=== PATIENT | female | born 1930 | race Caucasian/White ===

== ENCOUNTER 2017-06-28 16:53 | Emergency (ER) | payer MEDICARE ==
--- NOTE | 2017-06-28 17:34 | ERNOTE ---
Lower Extremity HPI - Narrative Date of Service: 06/28/17 - General Lower Extremities Pain: leg: left - Wound of left lateral mid shaft tibia Time Seen by Provider: 06/28/17 17:03 Source: patient, family Exam Limitations: no limitations - Immun/Allergies/Home Medications Immunizations: IMMUNIZATION HX Immunizations Up to Date Yes Allergies/Adverse Reactions: Allergies Allergy/AdvReac Type Severity Reaction Status Date / Time Penicillins Allergy Intermediate Hives Verified 06/28/17 17:09 procaine HCl [From Novocain] AdvReac Severe Swelling Verified 06/28/17 17:09 of Face Sulfa (Sulfonamide AdvReac Intermediate Other Verified 06/28/17 17:09 Antibiotics) [Sulfa(Sulfonamide Antibiotics)] Home Medications: HOME MEDICATIONS Aspirin [Aspirin Chewable] 1 tab PO DAILY 08/11/12 [Last Taken 08/10/12 17:00] Atorvastatin Calcium 1 tab PO DAILY 08/11/12 [Last Taken 08/10/12 17:00] Losartan/Hydrochlorothiazide [Losartan-Hctz 100-25 mg Tab] 1 tab PO DAILY [Last Taken 08/10/12 17:00] NIFEdipine [Nifedipine ER] 1 tab PO DAILY 08/11/12 [Last Taken 08/10/12 17:00] Warfarin Sodium [Coumadin] 1 tab PO DAILY 08/11/12 [Last Taken 08/10/12 17:00] Clindamycin HCl 450 mg PO TID 8 Days #72 capsule 06/28/17 [Last Taken Unknown] - History of Present Illness Narrative: Family state that they noticed the wound of the leg with some surrounding redness. Patient denies knowing what happened. States she has been out in some weeds but has no idea how the wound got this extensive without anyone knowing. Date (Duration): 06/28/17 Occurred: other Location of Incident: home Method of Injury: Reports: unknown Associated Symptoms: Reports: none Other Injuries: Reports: none Prior Treament: Reports: other - Has been applying topical antibiotics. Review of Systems - Narrative Narrative: See HPI. Patient states she has no loss of sensation distally. Denies any pain. States there was no trauma that she was aware of. States she is not diabetic. Patient is on warfarin. - Review of Systems Constitutional: Present: no symptoms reported Respiratory: Present: no symptoms reported Cardiology: Present: no symptoms reported Gastrointestinal/Abdominal: Present: no symptoms reported Musculoskeletal: Present: no symptoms reported Skin: Present: other - As mentioned states she developed this wound on the leg. Somewhat pruitic but denies pain or drainage. Have been applying topical antibiotic. Neurological: Present: no symptoms reported Endocrine: Present: no symptoms reported Hematologic/Lymphatic: Present: easy bruising Psych: Present: no symptoms reported - Patient's Past Medical History Patient History - Medical: No pertinent hx Patient History - Cardiac/Respiratory: Hypertension, Hyperlipidemia, Valvular Heart Disease, Other Patient History - Cancer: Skin Patient History - Surgical Procedures: Other Patient History - Other: None - Social History Smoking Status: Never smoker Have you smoked in the past 12 months: No - Immunizations Immunizations Up to Date: Yes Physical Exam - Physical Exam General Appearance: Present: wd/wn, alert, no apparent distress Ears, Nose, Throat: Present: hearing decreased Respiratory: Present: no respiratory distress Cardiovascular/Chest: Present: other - No peripheral edema Peripheral Pulses: N=norm/S=strong/W=weak/B=bound/A=absent: Dorsalis-pedis (L): Normal Extremity Exam: Present: normal range of motion, no edema, other - Left medial midshaft tibia 4x6 cm wound with mild sloughing of tissue. Within the larger wound are two deeper areas that do appear to have opened with bleeding. No bleeding presently. Surround the complete wound 1cm erythema with no induration. Mild swelling but no warmth. Distal sensation intact. On the anterior leg/esvilla two 1cm reddened/purple areas that have not opened. No drainage from these two areas. Neurological Exam: Present: alert, oriented, normal mood/affect, no motor/ sensory deficits Skin Exam: Present: other - See Extremity exam ED Progress - Vital Signs Patient's Vital Signs:: I have reviewed the patient's vital signs. Vital Signs: Vital Signs 06/28/17 16:58 Temperature 37.4 C Pulse Rate 106 H Respiratory 14 Rate Blood Pressure 148/61 O2 Sat by Pulse 93 Oximetry - Progress/Reassessment Chief Complaint: Lower Extremity Pain/ Injury Progress:: Re-examined Progress Note-Subjective: 06/28/17 17:59 Wound now covered. - Transfer of Care Expected Disposition: Discharge Procedures Left Lateral Tibia Wound's Depth/Shape: superficial Wound Explored: clean Wound Intervention: debrided minimal Wound Dressing: sterile dressing applied Complications: Pt landen procedure well Comment: No intervention other than scraping some debridable tissue and applying enedina dressing. Departure Clinical Impression: Wound of left leg Qualifiers: Encounter type: initial encounter Qualified Code(s): S81.802A - Unspecified open wound, left lower leg, initial encounter - Departure Disposition: Home Follow Up Needed Condition: Good Additional Instructions: I am concerned about cellulitis so will start you on a course of antibiotics every 8 hrs. Leave the leg wrapped until you see your primary provider on Friday. Might discuss with her whether or not wound therapy is needed. Also have your INR (coumadin) level checked. If you have any further complications let us know. Referrals: Vonda Chris, DO [Primary Care Provider] - Prescriptions: Clindamycin HCl 450 mg PO TID 8 Days #72 capsule
[2017-06-28 17:45] VITALS: BP 146/63
== END 2017-06-28 17:45 | disposition home or self-care (01) ==
LOC: ER 16:53
DX: S81.802A Unspecified open wound, left lower leg, initial encounter (principal); Z85.828 Personal history of other malignant neoplasm of skin; E78.5 Hyperlipidemia, unspecified; I10 Essential (primary) hypertension; Z79.01 Long term (current) use of anticoagulants

== ENCOUNTER 2017-06-30 12:49 | Emergency (ER) | payer MEDICARE ==
[2017-06-30 13:31] LABS: Hematocrit 40.1 % (37.0-47.0); Hemoglobin 12.9 gm/dL (12.5-16.0); Mean Cell Volume 86.6 fl (78-100); Mean Corpuscular Hemoglobin 27.9 pg (27-31); Mean Corpuscular Hgb Conc 32.2 g/dl (32-36); Mean Platelet Volume 10.3 fl (6.0-9.5); Neutrophil # 5.9 K/mm3 (1.3-6.0); Neutrophil % 60.7 % (42-75.0); Platelet Count 179 K/mm3 (150-450); Red Blood Count 4.63 M/mm3 (4.2-5.4); Red Cell Distribution Width 14.7 % (11.5-14.0); White Blood Count 9.8 K/mm3 (4.0-10.5)
[2017-06-30 13:41] LABS: Albumin * 4.1 gm/dl (3.4-5.0); Anion Gap 12.8 mmol/L (6.8-13.8); BUN/Creatinine Ratio 20.8 (9.0-21.6); Bilirubin, Total 0.8 mg/dL (0.0-1.1); Ca. Corrected For Albumin 8.7 mg/dL (8.4-10.2); Calcium * 9.1 mg/dL (7.9-10.9); Potassium 3.8 mmol/L (3.4-4.6); Total Protein 7.3 gm/dL (6.2-8.2)
[2017-06-30] MEDS ORDERED: LIDOCAINE HCL 20 ML VIAL ONE (14:27)
--- NOTE | 2017-06-30 14:34 | ERNOTE ---
Integumentary HPI - Narrative Date of Service: 06/30/17 - General Presenting Symptoms: other - Cellulitis Time Seen by Provider: 06/30/17 13:06 Source: patient, family, RN/MD - Dr. Chris, RN notes reviewed Exam Limitations: no limitations - Immun/Allergies/Home Medications Immunizations: IMMUNIZATION HX Immunizations Up to Date Yes History of Influenza Vaccine Yes Hx Pneumococcal Vaccination Yes Allergies/Adverse Reactions: Allergies Allergy/AdvReac Type Severity Reaction Status Date / Time Penicillins Allergy Intermediate Hives Verified 06/30/17 12:59 procaine HCl [From Novocain] AdvReac Severe Swelling Verified 06/30/17 12:59 of Face Sulfa (Sulfonamide AdvReac Intermediate Other Verified 06/30/17 12:59 Antibiotics) [Sulfa(Sulfonamide Antibiotics)] Home Medications: HOME MEDICATIONS Aspirin [Aspirin Chewable] 1 tab PO DAILY 08/11/12 [Last Taken 08/10/12 17:00] Atorvastatin Calcium 1 tab PO DAILY 08/11/12 [Last Taken 08/10/12 17:00] Losartan/Hydrochlorothiazide [Losartan-Hctz 100-25 mg Tab] 1 tab PO DAILY [Last Taken 08/10/12 17:00] NIFEdipine [Nifedipine ER] 1 tab PO DAILY 08/11/12 [Last Taken 08/10/12 17:00] Warfarin Sodium [Coumadin] 1 tab PO DAILY 08/11/12 [Last Taken 08/10/12 17:00] Clindamycin HCl 450 mg PO TID 8 Days #72 capsule 06/28/17 [Last Taken Unknown] - History of Present Illness Narrative: Angelica is a 87 year old female brought to the ED by her family for cellulitis of her left lower leg. She was initially evaluated here on 05/28/17 and started on clindamycin for this. She did not start the medication until yesterday and has only had 3 doses so far. She saw Dr. Chris (her PCP) for follow up this morning. I spoke with Dr. Chris at that time. She was concerned that the areas of redness may be "tunneling" and that the patient needed to be admitted for IV antibiotics. Her daughter reports that she was told to come here to be admitted. Dr. Chris had reported that the patient is diabetic, but the patient and family deny this. The patient had bumped her leg, causing a small wound to her sevilla approximately a week and a half ago. She has no prior history of skin infections. The wound was weeping when the patient was here 2 days ago, but this has subsided. She denies pain and reports that the area occasionally arita. Location: Reports: lower extremity - Left Quality: Reports: burning Prior Treatment: Reports: recently seen, currently on antibiotics Review of Systems - Review of Systems Constitutional: Absent: fever, chills, malaise EYE: Present: no symptoms reported ENT: Present: no symptoms reported Respiratory: Absent: shortness of breath Cardiology: Absent: chest pain, palpitations, edema Gastrointestinal/Abdominal: Present: nausea. Absent: vomiting, diarrhea, abdominal pain Genitourinary: Present: no symptoms reported Musculoskeletal: Absent: muscle pain, joint pain, joint swelling Skin: Present: lesions, change in color. Absent: lumps Neurological: Absent: headache, dizziness/light-headedness Endocrine: Present: no symptoms reported Hematologic/Lymphatic: Present: easy bruising, easy bleeding Psych: Present: no symptoms reported - Patient's Past Medical History Patient History - Medical: No pertinent hx Patient History - Cardiac/Respiratory: Hypertension, Hyperlipidemia, Valvular Heart Disease, Other Patient History - Cancer: Skin Patient History - Surgical Procedures: Other - Carotid endarterectomy, Valve replacement Patient History - Other: None LMP (females 10-50): Menopausal - Social History Living Situations: home Psych History: No pertinent hx Smoking Status: Former smoker Alcohol Use: occasionally Drug Use: none - Immunizations Immunizations Up to Date: Yes Hx Pneumococcal Vaccination: Yes History of Influenza Vaccine: Yes Physical Exam - Physical Exam General Appearance: Present: wd/wn, alert, no apparent distress, other - Pleasant, appropriately dressed/groomed Neck: Present: normal inspection, nontender, supple Respiratory: Present: no respiratory distress, normal breath sounds, no accessory muscle use, lungs clear Cardiovascular/Chest: Present: regular rate, rhythm, no murmur, normal peripheral pulses Extremity Exam: Present: normal range of motion, no edema. Absent: pedal edema , calf tenderness, joint redness, joint swelling, extremity edema Neurological Exam: Present: alert, oriented, normal mood/affect, no motor/ sensory deficits Skin Exam: Present: warm/dry, other - Erythematous areas to left mid sevilla anteriorly and laterally - has receeded since area was outlined 2 days ago, no drainage, no fluctuance, not excessively warm to touch ED Progress - Results and Orders Patient's Lab Results:: I have reviewed the patient's lab results. - Vital Signs Patient's Vital Signs:: I have reviewed the patient's vital signs. Vital Signs: Vital Signs 06/30/17 06/30/17 12:53 13:56 Temperature 36.7 C Pulse Rate 102 H 73 Respiratory 16 14 Rate Blood Pressure 118/100 160/77 O2 Sat by Pulse 98 93 Oximetry - X-Ray X-Ray #1 X-Ray: tibula/fibula Interpretation: Reviewed by me X-ray Comments: (Left) - no evidence of soft tissue gas, mild soft tissue swelling noted - Progress/Reassessment Chief Complaint: Cellulitis Progress:: Improved Plan - Plan Plan: Test results discussed with patient and family. One of the daughters was very unhappy that the patient was not going to be admitted, as they had been told that this was the reason for coming here. I explained at length that despite only 3 doses (24 hrs) of clindamycin, the condition seems to be improving. The redness has receeded from what was outlined in ink 2 days ago, there is no drainage, the patient is not febrile and has a normal white count, and she is tolerating oral intake with only mild nausea.The patient is A/Ox3, very pleasant , and reports that she did not want to be in the hospital anyway. Madyson Enrique RN, ED supervisor extruding department and Dr. White also spoke with the patient and family to reiterate this information. The patient and daughter seem to be content and in agreement with the plan of care at the time of discharge. The daughter who had seemed unhappy mentioned not wanting to be told to see Dr. Chris again for follow up, only to be told to then come here. I discussed with the patient that she did not necessarily have to go for follow up if she was doing well, but that if her condition was worsening she should return to the ER. Departure Clinical Impression: Cellulitis of left lower extremity without foot - Departure Disposition: Home self-care Condition: Good Instructions: Cellulitis, Adult, [id number] Additional Instructions: Elevate your leg whenever you are able You do not need to cover the area with a dressing if it is not draining Wash area as you normally would when bathing/showering Continue your current medications including the antibiotic (clindamycin) Referrals: Vonda Chris DO [Primary Care Provider] -
[2017-06-30 15:02] VITALS: BP 164/80
== END 2017-06-30 15:00 | disposition home or self-care (01) ==
LOC: ER 12:49
DX: L03.116 Cellulitis of left lower limb (principal); Z85.828 Personal history of other malignant neoplasm of skin; Z87.891 Personal history of nicotine dependence

== ENCOUNTER 2017-09-23 13:47 | Inpatient (IN) | payer MEDICARE ==
[2017-09-23] MEDS ORDERED: ALBUTEROL SULFATE/IPRATROPIUM 3 ML NEBU IH ONE ×2 (14:15→14:16)
[2017-09-23 14:43] LABS: Hematocrit 33.7 % (37.0-47.0); Hemoglobin 10.9 gm/dL (12.5-16.0); Mean Cell Volume 85.8 fl (78-100); Mean Corpuscular Hemoglobin 27.7 pg (27-31); Mean Corpuscular Hgb Conc 32.3 g/dl (32-36); Mean Platelet Volume 10.3 fl (6.0-9.5); Neutrophil # 8.3 K/mm3 (1.3-6.0); Neutrophil % 72.5 % (42-75.0); Platelet Count 131 K/mm3 (150-450); Red Blood Count 3.93 M/mm3 (4.2-5.4); Red Cell Distribution Width 16.2 % (11.5-14.0); White Blood Count 11.5 K/mm3 (4.0-10.5)
[2017-09-23 14:52] LABS: INR 2.78 INR (0.90-1.10); Prothrombin Time (Patient) 28.1 Seconds (9.0-11.0)
[2017-09-23 15:07] LABS: Albumin * 3.6 gm/dl (3.4-5.0); Anion Gap 13.4 mmol/L (6.8-13.8); BUN/Creatinine Ratio 27.7 (9.0-21.6); Bilirubin, Total 1.4 mg/dL (0.0-1.1); Ca. Corrected For Albumin 8.9 mg/dL (8.4-10.2); Calcium * 8.9 mg/dL (7.9-10.9); Carbon Dioxide 25.5 mmol/L (24-32.6); Potassium 3.9 mmol/L (3.4-4.6); Total Protein 7.1 gm/dL (6.2-8.2)
[2017-09-23 15:10] LABS: Troponin I 0.235 ng/ml (0.00-0.10)
--- NOTE | 2017-09-23 15:13 | ERNOTE ---
Chest Pain/Cardiac HPI Date of Service: 09/23/17 Chief Complaint: Chest Pain Time Seen by Provider: 09/23/17 14:22 Source: patient, family, RN notes reviewed, past records Exam Limitations: no limitations Immunizations: IMMUNIZATION HX Immunizations Up to Date Yes History of Influenza Vaccine Yes Hx Pneumococcal Vaccination Yes Allergies/Adverse Reactions: Allergies levofloxacin [From Levaquin] Allergy (Intermediate, Verified 09/23/17 16:24) Hives Penicillins Allergy (Intermediate, Verified 09/23/17 14:08) Hives metoprolol Allergy (Mild, Verified 09/23/17 14:08) Hives procaine HCl [From Novocain] Adverse Reaction (Severe, Verified 09/23/17 14:08) Swelling of Face Sulfa (Sulfonamide Antibiotics) [Sulfa(Sulfonamide Antibiotics)] Adverse Reaction (Intermediate, Verified 09/23/17 14:08) Other nightmares Home Medications: HOME MEDICATIONS Aspirin [Aspirin Chewable] 1 tab PO DAILY 08/11/12 [Last Taken 08/10/12 17:00] Atorvastatin Calcium 1 tab PO DAILY 08/11/12 [Last Taken 08/10/12 17:00] Losartan/Hydrochlorothiazide [Losartan-Hctz 100-25 mg Tab] 1 tab PO DAILY [Last Taken 08/10/12 17:00] NIFEdipine [Nifedipine ER] 1 tab PO DAILY 08/11/12 [Last Taken 08/10/12 17:00] Warfarin Sodium [Coumadin] 1 tab PO SUMOTUTHFR 08/11/12 [Last Taken 08/10/12 17: 00] Docusate Sodium [Colace] 2 cap PO DAILY 09/14/17 [Last Taken Unknown] Warfarin Sodium [Coumadin] 7.5 mg PO WESA 09/14/17 [Last Taken Unknown] Acetaminophen [Tylenol] 650 mg PO Q6H PRN #0.1 tablet 09/16/17 [Last Taken Unknown] Levofloxacin [Levaquin] 500 mg PO Q48H #3 tab 09/16/17 [Last Taken Unknown] Narrative: Angelica is a 87 year old female brought to the ED from home by her daughter for chest pain. She had a brief episode of chest pain at approximately 0300 this morning. The daughter tried to get her to come in for evaluation then but the patient did not want to, and then the pain resolved. She was doing well today until she began having chest pain while walking across the room. This resolved without intervention as well. She was was just discharged from the hospital 6 days ago. She was admitted with pneumonia and new onset CHF. She has been seen by cardiology for follow-up since then. She was treated with IV Levaquin while in the hospital but only took 2 doses once she got home because she broke out with hives. Date (Duration): 09/23/17 Timing: resolved prior to arrival Severity/Quality: severe Location: substernal Chest Pain Radiation: no radiation Nitro Today/Relief: no nitro taken today Aspirin Treatment Today: 81 mg x 1, provided at home Associated Symptoms: Present: cough, nausea. Absent: headache, dizziness, syncope, shortness of breath, diaphoresis, fever/chills, palpitations, heartburn , vomiting, abdominal pain, weakness, back pain, swelling/lump in chest Prior Chest Pain/Cardiac Workup: Reports: prior chest pain, other - CABG Prior Treatment: Reports: recently seen, treated by physician, recently hospitalized. Denies: currently on antibiotics Review of Systems - Review of Systems Constitutional: Present: recent illness, fatigue, decreased activity level. Absent: fever EYE: Present: no symptoms reported ENT: Absent: nose congestion, sore throat Respiratory: Present: shortness of breath, cough, orthopnea. Absent: wheezing Cardiology: Present: chest pain. Absent: syncope, edema Gastrointestinal/Abdominal: Present: nausea. Absent: vomiting, diarrhea, abdominal pain Genitourinary: Absent: dysuria, decreased urinary output Musculoskeletal: Absent: muscle pain, joint pain Skin: Absent: rash, lesions Neurological: Absent: headache, dizziness/light-headedness Endocrine: Present: no symptoms reported Hematologic/Lymphatic: Present: easy bruising, easy bleeding Psych: Present: no symptoms reported - Patient's Past Medical History Patient History - Medical: Renal Disease Patient History - Cardiac/Respiratory: Cardiomyopathy, Coronary Heart Disease, CHF - EF 50-55%, Hypertension, Hyperlipidemia, Valvular Heart Disease Patient History - Cancer: Skin Patient History - Surgical Procedures: Appendectomy, Colonoscopy, Coronary Bypass Surgery, Hysterectomy, Other - Aortic valve replacement, Carotic endarterectomy Patient History - Other: None LMP (females 10-50): Menopausal - Family History Father Family History - Medical: Family History - Cardiac/Respiratory: CHF Family History - Cancer: No pertinent family hx Mother Family History - Medical: Family History - Cardiac/Respiratory: Myocardial Infarction Family History - Cancer: No pertinent family hx - Social History Living Situations: home Abuse History: No History of abuse Psych History: No pertinent hx Smoking Status: Former smoker Alcohol Use: none Drug Use: none - Immunizations Immunizations Up to Date: Yes Hx Pneumococcal Vaccination: Yes History of Influenza Vaccine: Yes Physical Exam - Physical Exam General Appearance: Present: wd/wn, alert, mild distress, other - Pleasant, talkative, appropriately dressed and groomed Head Exam: Present: normal inspection Neck: Present: normal inspection, nontender, supple Respiratory: Present: no respiratory distress, accessory muscle use - mild, rales - bilateral bases Cardiovascular/Chest: Present: normal peripheral pulses, tachycardia - regular, systolic murmur Peripheral Pulses: N=norm/S=strong/W=weak/B=bound/A=absent: Dorsalis-pedis (R): Normal, Dorsalis-pedis (L): Normal Gastrointestinal/Abdominal: Present: nontender, nondistended, soft Extremity Exam: Present: normal inspection, non-tender, no edema Neurological Exam: Present: alert, oriented, normal mood/affect, no motor/ sensory deficits Skin Exam: Present: normal color, warm/dry ED Progress - Results and Orders Patient's Lab Results:: I have reviewed the patient's lab results. - Vital Signs Patient's Vital Signs:: I have reviewed the patient's vital signs. Vital Signs: Vital Signs 09/23/17 09/23/17 09/23/17 14:03 14:19 14:20 Temperature 37.3 C Pulse Rate 108 H 103 H 102 H Respiratory 25 H 22 H 22 H Rate Blood Pressure 137/57 134/52 O2 Sat by Pulse 88 L 90 90 Oximetry 09/23/17 14:35 Temperature Pulse Rate Respiratory Rate Blood Pressure O2 Sat by Pulse 95 Oximetry - EKG EKG: other - sinus tach EKG read: Reviewed by me - X-Ray X-Ray #1 X-Ray: chest Interpretation: Reviewed by me X-ray Comments: Indication: chest pain, pneumonia Comparison: September 14, 2017 Technique: Chest PA Lateral * Findings: Reidentified central vascular congestion and interstitial edema. Previous median sternotomy and valvular prosthesis reidentified. Cardiac silhouette is unchanged. No pneumothorax. IMPRESSION: 1. Correlate for volume overload/CHF. Electronically signed by Blake Tang M.D.. - Progress/Reassessment Chief Complaint: Chest Pain Progress:: Improved Plan - Plan Plan: Patient hypoxic on arrival at 88%. She has not had any further chest pain, however her troponin is mildly elevated. Her lactic acid is also elevated at 2.2 , but she does not appear to be septic as she has a stable blood pressure and is only mildly tachycardic. Her BNP is 2116 today (2119 on last admit) so IV fluids were not given. Her WBC has also improved since her last admit, as has the pneumonia seen on her previous chest xray. Her urine did show leukocyte esterace and a culture is pending, as are her blood cultures. Patient's PCP is Dr. Chris. Dr. Brian (on-call) was contacted and will admit the patient for further evaluation and treatment. Departure Clinical Impression: Hypoxia, Elevated troponin Congestive heart failure Qualifiers: Congestive heart failure type: unspecified Congestive heart failure chronicity : unspecified Qualified Code(s): I50.9 - Heart failure, unspecified - Departure Disposition: [facility] Condition: Fair
[2017-09-23 15:30] LABS: Urine Bilirubin Negative (NEGATIVE); Urine Blood Negative /ul (NEGATIVE); Urine Ketone Negative (NEGATIVE); Urine Nitrite Negative (NEGATIVE); Urine Protein Negative (NEGATIVE); Urine Specific Gravity 1.015 SP.GR. (1.005-1.010); Urine Urobilinogen Normal (NORMAL)
[2017-09-23 15:45] LABS: Urine Appearance Clear; Urine Bacteria None Seen; Urine Color Yellow; Urine RBC None Seen /hpf (0-5); Urine WBC 0-5 /hpf (0-5)
--- NOTE | 2017-09-23 18:59 | HP ---
Chief Complaint - Chief Complaint Date of Service: 09/23/17 Time of Service: 18:38 Chief Complaint: dyspnea History of Present Illness: Angelica Bowden is an 87-year-old female patient who developed shortness of breath at home and was brought to the emergency room per EMS this afternoon. On arrival her O2 sat was 80% and blood gases shows a superior respiratory problem with with a PO2 of 79.8%. She was placed on oxygen at 2 L nasal cannula and this has brought her O2 sats up to 89-90%. She is in the hospital last week with a diagnosis of pneumonia. She was treated with respiratory therapy and with IV Levaquin for 3 days and then sent home to take by mouth Levaquin for another 3 days. She developed itching on day 2 of the oral Levaquin at home and did not take the third dose. She denies having had any fever or chills. She has coughed up some pink frothy sputum on occasion. The chest x-ray shows improvement in the appearance of the pneumonia but now appears that she has some pulmonary vascular congestion with lines to the parameter and interstitial edema present. Her troponin is elevated slightly at 0.233 suggestive of but not diagnostic of an acute myocardial infarction. Furthermore her BNP has been greater than 2000 on both admissions. She relates an episode last night and another one earlier today of having a burning sensation in her chest with pressure on the anterior chest. She denies any radiation, nausea or vomiting, lightheadedness, or diaphoresis. She stated it lasted about 20 minutes and then was just resting and rubbing her chest it subsided and went away. ++ - Patient's Past Medical History Patient History - Medical: Renal Disease Patient History - Cardiac/Respiratory: Cardiomyopathy, Coronary Heart Disease, CHF, Hypertension, Hyperlipidemia, Valvular Heart Disease Patient History - Cancer: Skin Patient History - Surgical Procedures: Appendectomy, Colonoscopy, Coronary Bypass Surgery, Hysterectomy, Other - Aortic Valve Replacement with a [employer] mechanical valve Patient History - Other: None LMP (females 10-50): Menopausal - Family History Father Family History - Medical: Family History - Cardiac/Respiratory: CHF Family History - Cancer: No pertinent family hx Mother Family History - Medical: Family History - Cardiac/Respiratory: Myocardial Infarction Family History - Cancer: No pertinent family hx - Social History Living Situations: home Abuse History: No History of abuse Psych History: No pertinent hx Does anyone smoke in the home?: No Smoking Status: Former smoker Have you smoked in the past 12 months: No Do you dip or chew tobacco: No Alcohol Use: none Drug Use: none - Immunizations Immunizations Up to Date: Yes Hx Pneumococcal Vaccination: Yes History of Influenza Vaccine: Yes Immunizations: IMMUNIZATION HX Immunizations Up to Date Yes History of Influenza Vaccine Yes Hx Pneumococcal Vaccination Yes Allergies/Adverse Reactions: Allergies Allergy/AdvReac Type Severity Reaction Status Date / Time levofloxacin [From Levaquin] Allergy Intermediate Hives Verified 09/23/17 17:20 Penicillins Allergy Intermediate Hives Verified 09/23/17 17:20 metoprolol Allergy Mild Hives Verified 09/23/17 17:20 procaine HCl [From Novocain] AdvReac Severe Swelling Verified 09/23/17 17:20 of Face Sulfa (Sulfonamide AdvReac Intermediate Other Verified 09/23/17 17:20 Antibiotics) [Sulfa(Sulfonamide Antibiotics)] Home Medications: HOME MEDICATIONS Aspirin [Aspirin Chewable] 1 tab PO HS 08/11/12 [Last Taken 08/10/12 17:00] Atorvastatin Calcium 1 tab PO HS 08/11/12 [Last Taken 08/10/12 17:00] Losartan/Hydrochlorothiazide [Losartan-Hctz 100-25 mg Tab] 1 tab PO HS 08/11/12 [Last Taken 08/10/12 17:00] NIFEdipine [Nifedipine ER] 1 tab PO HS 08/11/12 [Last Taken 08/10/12 17:00] Warfarin Sodium [Coumadin] 1 tab PO SUMOTUTHFR 08/11/12 [Last Taken 08/10/12 17: 00] Docusate Sodium [Colace] 2 cap PO HS 09/14/17 [Last Taken Unknown] Warfarin Sodium [Coumadin] 7.5 mg PO WESA 09/14/17 [Last Taken Unknown] Acetaminophen [Tylenol] 650 mg PO Q6H PRN #0.1 tablet 09/16/17 [Last Taken Unknown] Exam - Exam Vital Signs: Vital Signs - Last Taken Temp 36.8 C 09/23/17 16:58 Pulse 106 H 09/23/17 16:58 Resp 20 09/23/17 16:58 BP 135/53 09/23/17 16:58 Pulse Ox 94 09/23/17 16:58 Diagnostic Studies: Laboratory Results WBC 11.5 K/mm3 (4.0-10.5) H 09/23/17 14:30 RBC 3.93 M/mm3 (4.2-5.4) L 09/23/17 14:30 Hgb 10.9 gm/dL (12.5-16.0) L 09/23/17 14:30 Hct 33.7 % (37.0-47.0) L 09/23/17 14:30 MCV 85.8 fl (78-100) 09/23/17 14:30 MCH 27.7 pg (27-31) 09/23/17 14:30 MCHC 32.3 g/dl (32-36) 09/23/17 14:30 RDW 16.2 % (11.5-14.0) H 09/23/17 14:30 Plt Count 131 K/mm3 (150-450) L 09/23/17 14:30 MPV 10.3 fl (6.0-9.5) H 09/23/17 14:30 Immature Gran % (Auto) 0.30 % (0.001-0.429) 09/23/17 14:30 Immature Gran # (Auto) 0.04 K/mm3 (0.000-0.0310) H 09/23/17 14:30 Neutrophils % 72.5 % (42-75.0) 09/23/17 14:30 Lymphocytes % 16.4 % (20-51) L 09/23/17 14:30 Monocytes % 8.4 % (0.0-9) 09/23/17 14:30 Eosinophils % 1.9 % (0.0-3.0) 09/23/17 14:30 Basophils % 0.5 % (0.0-1.0) 09/23/17 14:30 Nucleated RBC % 0.0 k/mm3 (0-1) 09/23/17 14:30 Neutrophils # 8.3 K/mm3 (1.3-6.0) H 09/23/17 14:30 Lymphocytes # 1.9 k/mm3 (1.5-3.5) 09/23/17 14:30 Monocytes # 1.0 k/mm3 (0.0-1.0) 09/23/17 14:30 Eosinophils # 0.2 k/mm3 (0.0-0.7) 09/23/17 14:30 Absolute Basophils 0.1 k/mm3 (0.0-0.1) 09/23/17 14:30 PT 28.1 Seconds (9.0-11.0) H 09/23/17 14:30 INR (Anticoag Therapy) 2.78 INR (0.90-1.10) H 09/23/17 14:30 pCO2 34.4 mmHg (32.0-45.0) 09/23/17 14:58 pO2 42.8 mmHg (83.0-108.0) L 09/23/17 14:58 HCO3 21.6 mmol/L (21.0-28.0) 09/23/17 14:58 Total CO2 22.6 mmol/L (19.0-24.0) 09/23/17 14:58 Base Excess -2.4 mmol/L (-2.0-3.0) L 09/23/17 14:58 ABG pH 7.42 (7.35-7.45) 09/23/17 14:58 ABG O2 Sat (Measured) 79.8 % (94.0-98.0) L 09/23/17 14:58 Sodium 138 mmol/L (132-142) 09/23/17 14:30 Plasma Sodium 139 mmol/L (130-142) 09/23/17 14:30 Potassium 3.9 mmol/L (3.4-4.6) 09/23/17 14:30 Chloride 103 mmol/L (97-106) 09/23/17 14:30 Carbon Dioxide 25.5 mmol/L (24-32.6) 09/23/17 14:30 Anion Gap 13.4 mmol/L (6.8-13.8) 09/23/17 14:30 BUN 49 mg/dL (3-23) H 09/23/17 14:30 Creatinine 1.77 mg/dL (0.4-1.4) H 09/23/17 14:30 Est GFR (Non-Af Amer) 29 mL/min (60-130) L 09/23/17 14:30 BUN/Creatinine Ratio 27.7 (9.0-21.6) H 09/23/17 14:30 Random Glucose 151 mg/dL (70-110) H 09/23/17 14:30 Lactic Acid, Venous 1.7 mmol/L (0.4-1.9) 09/23/17 17:31 Calcium 8.9 mg/dL (7.9-10.9) 09/23/17 14:30 Calcium Adj for Albumin 8.9 mg/dL (8.4-10.2) 09/23/17 14:30 Total Bilirubin 1.4 mg/dL (0.0-1.1) H 09/23/17 14:30 AST 19 U/L (0-48) 09/23/17 14:30 ALT 31 U/L (19-67) 09/23/17 14:30 Alkaline Phosphatase 68 U/L (50-170) 09/23/17 14:30 Troponin I 0.235 ng/ml (0.00-0.10) H* 09/23/17 14:30 B-Natriuretic Peptide 2116 pg/mL (5-550) H 09/23/17 14:30 Total Protein 7.1 gm/dL (6.2-8.2) 09/23/17 14:30 Albumin 3.6 gm/dl (3.4-5.0) 09/23/17 14:30 Urine Color Yellow 09/23/17 15:14 Urine Appearance Clear 09/23/17 15:14 Urine pH 6.0 pH (5.0-7.0) 09/23/17 15:14 Ur Specific [place] 1.015 SP.GR. (1.005-1.010) 09/23/17 15:14 Urine Protein Negative mg/dL (NEGATIVE) 09/23/17 15:14 Urine Glucose (UA) Negative mg/dL (NEGATIVE) 09/23/17 15:14 Urine Ketones Negative mg/dL (NEGATIVE) 09/23/17 15:14 Urine Blood Negative /ul (NEGATIVE) 09/23/17 15:14 Urine Nitrate Negative (NEGATIVE) 09/23/17 15:14 Urine Bilirubin Negative mg/dl (NEGATIVE) 09/23/17 15:14 Urine Urobilinogen Normal EU/dl (NORMAL) 09/23/17 15:14 Ur Leukocyte Esterase 25 /ul (NEGATIVE) H 09/23/17 15:14 Urine RBC None seen /hpf (0-5) 09/23/17 15:14 Urine WBC 0-5 /hpf (0-5) 09/23/17 15:14 Ur Epithelial Cells 0-5 /hpf (0-5) 09/23/17 15:14 Urine Bacteria None seen (NONE) 09/23/17 15:14 Urine Culture Comments Culture to follow 09/23/17 15:14
[2017-09-23] MEDS ORDERED: FUROSEMIDE 10 MG/ML VIAL IV SCH (19:15)
[2017-09-23] MEDS ORDERED: ACETAMINOPHEN 325 MG TABLET PO PRN (19:38)
[2017-09-23] MEDS ORDERED: WARFARIN SODIUM 5 MG TABLET PO SCH (20:00)
[2017-09-23] MEDS ORDERED: ROSUVASTATIN CALCIUM 10 MG TABLET ONE ×2 (20:19→20:25)
[2017-09-23] MEDS: ASPIRIN 81 MG TAB.CHEW PO SCH (20:23)
[2017-09-23] MEDS: NIFEdipine 30 MG TAB.SR.24H PO SCH (20:23)
[2017-09-23] MEDS: DOCUSATE SODIUM 100 MG CAPSULE PO SCH (20:23)
[2017-09-23] MEDS: ROSUVASTATIN CALCIUM 20 MG TABLET PO SCH (20:24)
[2017-09-23] MEDS ORDERED: HYDROCHLOROTHIAZIDE PO SCH (21:00)
[2017-09-23] MEDS ORDERED: LOSARTAN PO SCH (21:00)
[2017-09-23] MEDS ORDERED: [UNRECOGNIZED DRUG - OTHER] PO SCH (21:00)
[2017-09-24 06:22] LABS: Prothrombin Time (Patient) 28.3 Seconds (9.0-11.0)
[2017-09-24 06:29] LABS: INR 2.8 INR (0.90-1.10)
[2017-09-24 06:37] LABS: CKMB 1.3 ng/mL (0.0-9.0)
[2017-09-24 06:39] LABS: Troponin I 0.306 ng/ml (0.00-0.10)
[2017-09-24] MEDS: HYDROCHLOROTHIAZIDE 25 MG TABLET PO SCH (08:23)
[2017-09-24] MEDS: LOSARTAN POTASSIUM 50 MG TABLET PO SCH (08:24)
--- NOTE | 2017-09-24 10:31 | PN ---
Subjective - Date and Time Seen Date: 09/24/17 Time: 09:30 Subjective Narrative: Areas feeling better this morning. She diuresed a little last night with 40 of Lasix and then was up about 4 times going to the bathroom but otherwise rested well. She has no new problems or complaints. She has not had any more chest pain, pressure, or burning. She is eating well. She still feels that she has some weight on her chest but is less her hungry. Objective Objective Narrative: Vital signs are stable again today. She is alert and oriented and cooperative. She is in no distress. Lab review shows troponin slightly increased to 0.3 and the EKG appears to be a left bundle branch block making it difficult to read and AMI. - Review of Systems Generalized/Overall Review: Denies: Weakness, Fever, Diaphoresis, Fatigue, Weight loss, Weight gain EENTM: Reports: No Symptoms Reported Respiratory: Reports: Shortness of Breath Cardiac: Reports: Chest Pain - Described as pressure only. It is nonradiating. , Other - She has mild tachycardia but improved from admission of 116 down to 92 this morning Abdominal: Reports: No Symptoms Reported Genitourinary Symptoms: Reports: No Symptoms Reported Musculoskeletal Complaints: Reports: No Symptoms Reported Neurological: Reports: No Symptoms Reported Skin: Reports: No Symptoms Reported Endocrine: Reports: No Symptoms Reported - Vitals Vitals: Last Vital Signs Temp 37.3 C 09/24/17 08:02 Pulse 90 09/24/17 09:48 Resp 22 H 09/24/17 08:02 BP 129/50 09/24/17 08:24 Pulse Ox 89 L 09/24/17 08:02 - Abnormal Lab Findings Abnormal Lab Findings: Abnormal Lab Results 09/24/17 09/24/17 Range/Units 06:07 06:07 PT 28.3 H (9.0-11.0) Seconds INR (Anticoag Therapy) 2.80 H (0.90-1.10) INR Troponin I 0.306 H* (0.00-0.10) ng/ml - EKG/Xray Findings EKG: NSR, LBBB - EKG shows a MN interval of 0.26 with what appears to be left bundle branch block. Heart rate is 92. There is no ectopy. EKG read: Interp. by me XRAY: chest - Chest x-ray shows improvement in her pneumonia. There is what appears to be interstitial edema and increased interstitial markings out to the periphery. There is no pleural effusion or atelectasis. Interpretation: Interp. by me - Exam Constitutional: Present: Alert, Oriented x3, Cooperative, Well developed, Well nourished, No distress, Elderly, Obese ENT Exam: Present: normal ENT inspection, hearing grossly normal Neck: Present: non-tender. Absent: lymphadenopathy (R), lymphadenopathy (L), stiff neck Breasts: Present: Exam deferred Respiratory: Present: chest non-tender, normal breath sounds, no respiratory distress, no accessory muscle use, No rales, No wheezing, plerual rub. Absent: respiratory distress Cardiovascular/Chest: Present: normal peripheral pulses, regular rate, rhythm, no chest tenderness, no edema, systolic murmur - Due to mechanical prosthetic aortic valve and a second murmur due to mitral stenosis. Abdomen: Present: Normal bowel sounds /Rectal: Present: Exam deferred Extremity: Present: normal range of motion - For age.. Absent: lower extremity edema, pedal edema, slow capillary refill, swelling Skin Exam: Present: normal color Lymphatic: Present: no adenopathy Neurologic: Present: silk brusher II-XII nml as tested, no motor/sensory deficits, alert , normal mood/affect, oriented x 3. Absent: motor weakness Appearance: Present: appropriate appearance, appropriate insight, no memory impairment Eye contact: Present: cooperative, good eye contact, normal speech Thoughts: Present: normal thought pattern Assessment/Plan Plan Narrative: I have asked Dr. Barreto to consult regarding her possible non-STEMI. I have reviewed her history and physical findings with him. I have also let him know that she had an EKG and echocardiogram done this morning. He states that he will see her later this afternoon around 3:30 or 4:00. - Problems/Diagnosis (1) Non-STEMI (non-ST elevated myocardial infarction) Problem: Acute Narrative: Serial troponins are elevated in the probable AMI range. EKGs have shown interventricular conduction delay versus left bundle branch block and have shown ST segment depression suggesting lateral wall ischemia. Patient's history of some substernal burning and chest pressure and heaviness. (2) Congestive cardiac failure Problem: Acute Qualifiers: Congestive heart failure type: diastolic Congestive heart failure chronicity: acute Qualified Code(s): I50.31 - Acute diastolic (congestive) heart failure Narrative: Patient's physical exam last night did not support diagnosis of CHF. No rales or rhonchi, edema, or distended neck veins were present. She was mildly And had mild tachycardia that was sinus tachycardia. The chest x-ray however shows an acute change with interstitial edema and pulmonary vascular congestion. Her BNP has been greater than 2000 twice. (3) Bilateral pneumonia Problem: Acute Qualifiers: Pneumonia type: due to unspecified organism Lung location: unspecified part of lung Qualified Code(s): J18.9 - Pneumonia, unspecified organism Narrative: Angelica was in the hospital last week with a diagnosis of bilateral pneumonia and hypoxemia. She was treated with respiratory therapy, IV Levaquin, and sent home on by mouth Levaquin. Chest x-ray shows improvement in the pneumonia appearance. She continues to have oxygen saturations that are slightly low. On arrival her O2 sat was 79% and on 2 L nasal cannula has been about 90%. (4) Hypoxia Problem: Acute (5) Elevated troponin Problem: Acute Narrative: Laboratory Tests 09/23/17 09/24/17 14:30 06:07 Troponin I 0.235 H* 0.306 H* (6) History of Coumadin therapy Problem: Chronic (7) CAD (coronary artery disease), [place] coronary artery Problem: Chronic Qualifiers: [place] vs. transplanted heart: [place] heart Associated angina: with unstable angina Qualified Code(s): I25.110 - Atherosclerotic heart disease of [place] coronary artery with unstable angina pectoris (8) Hyperlipidemia Problem: Chronic Qualifiers: Hyperlipidemia type: unspecified Qualified Code(s): E78.5 - Hyperlipidemia , unspecified (9) Hypertension Problem: Chronic Qualifiers: Hypertension type: renovascular hypertension Qualified Code(s): I15.0 - Renovascular hypertension (10) S/P AVR (aortic valve replacement) Problem: Chronic (11) Mitral stenosis Problem: Chronic Qualifiers: Cardiac valve disease etiology: etiology unspecified Qualified Code(s): I05.0 - Rheumatic mitral stenosis (12) Chronic kidney disease (CKD) stage G4/A1, severely decreased glomerular filtration rate (GFR) between 15-29 mL/min/1.73 square meter and albuminuria creatinine ratio less than 30 mg/g Problem: Chronic
[2017-09-24] MEDS ORDERED: FUROSEMIDE 10 MG/ML VIAL IV ONE (11:00)
[2017-09-24] MEDS: WARFARIN SODIUM 5 MG TABLET PO SCH (16:44)
[2017-09-24] MEDS ORDERED: WARFARIN SODIUM 7.5 MG TABLET PO SCH (17:00)
[2017-09-24] MEDS: ASPIRIN 81 MG TAB.CHEW PO SCH (20:10)
[2017-09-24] MEDS: DOCUSATE SODIUM 100 MG CAPSULE PO SCH (20:10)
[2017-09-24] MEDS: NIFEdipine 30 MG TAB.SR.24H PO SCH (20:10)
[2017-09-24] MEDS: ROSUVASTATIN CALCIUM 20 MG TABLET PO SCH (20:10)
[2017-09-25 06:21] LABS: Anion Gap 9.4 mmol/L (6.8-13.8); BUN/Creatinine Ratio 33.8 (9.0-21.6); Calcium * 8.4 mg/dL (7.9-10.9); Estimated Creat Clear 18.9; Potassium 3.4 mmol/L (3.4-4.6)
[2017-09-25 06:24] LABS: Troponin I 0.201 ng/ml (0.00-0.10)
[2017-09-25] MEDS: LOSARTAN POTASSIUM 50 MG TABLET PO SCH (08:52)
[2017-09-25] MEDS: HYDROCHLOROTHIAZIDE 25 MG TABLET PO SCH (08:52)
[2017-09-25 09:06] LABS: Prothrombin Time (Patient) 28.8 Seconds (9.0-11.0)
[2017-09-25 09:07] LABS: INR 2.85 INR (0.90-1.10)
--- NOTE | 2017-09-25 09:11 | ECHO ---
This report is available in the EMR
[2017-09-25] MEDS: MAGNESIUM OXIDE 400 MG TABLET PO SCH (11:25)
[2017-09-25] MEDS: POTASSIUM CHLORIDE 10 MEQ TABLET.SA PO SCH (11:26)
[2017-09-25] MEDS: FUROSEMIDE 40 MG TABLET PO SCH (11:26)
[2017-09-25] MEDS: WARFARIN SODIUM 5 MG TABLET PO SCH (17:57)
--- NOTE | 2017-09-25 19:25 | PN ---
Subjective - Date and Time Seen Date: 09/25/17 Time: 10:30 Subjective Narrative: Angelica is feeling quite a bit better this morning. She is walking better. She is much less short of breath. She has just taken a shower without her oxygen on and did not get short of breath during the shower or in the drawing off. She has her oxygen back on now. She has been urinating quite a lot with his Lasix. She had a consultation by Dr. Barreto (cardiology) yesterday. I reviewed his consultation letter and is most appreciated. Objective Objective Narrative: Vital signs are stable again today. She is alert and oriented and cooperative. She is in no distress. Lab review shows troponin slightly increased to 0.3 and the EKG appears to be a left bundle branch block making it difficult to read and AMI. Her troponin this morning is down to 0.2. Her electrolytes remained normal. She has remained in normal sinus rhythm. Her oxygen saturations have been 88% at rest on room air and desats to 86% with ambulation. With 2 L nasal cannula she is now up over 92%. Chest x-ray shows interval improvement with less interstitial edema and decreased pulmonary vascular markings. - Review of Systems Generalized/Overall Review: Reports: No Symptoms Reported EENTM: Reports: No Symptoms Reported Respiratory: Reports: Shortness of Breath Cardiac: Reports: No Symptoms Reported - She has not had any more chest discomfort since yesterday. Abdominal: Reports: No Symptoms Reported Genitourinary Symptoms: Reports: No Symptoms Reported Musculoskeletal Complaints: Reports: No Symptoms Reported Neurological: Reports: No Symptoms Reported Skin: Reports: No Symptoms Reported Endocrine: Reports: No Symptoms Reported Misc: All systems neg except as marked - Vitals Vitals: Last Vital Signs Temp 36.4 C L 09/25/17 12:20 Pulse 76 09/25/17 17:00 Resp 20 09/25/17 12:20 BP 105/46 09/25/17 12:20 Pulse Ox 98 09/25/17 12:20 - Abnormal Lab Findings Abnormal Lab Findings: Abnormal Lab Results 09/25/17 09/25/17 Range/Units 05:56 06:00 PT 28.8 H (9.0-11.0) Seconds INR (Anticoag Therapy) 2.85 H (0.90-1.10) INR BUN 49 H (3-23) mg/dL Creatinine 1.45 H (0.4-1.4) mg/dL Est GFR (Non-Af Amer) 36 L D (60-130) mL/min BUN/Creatinine Ratio 33.8 H (9.0-21.6) Troponin I 0.201 H* (0.00-0.10) ng/ml Assessment/Plan Plan Narrative: She will be admitted to home health, have home oxygen set up, and then be discharged tomorrow morning. - Problems/Diagnosis (1) Non-STEMI (non-ST elevated myocardial infarction) Problem: Acute (2) Congestive cardiac failure Problem: Acute Qualifiers: Congestive heart failure type: diastolic Congestive heart failure chronicity: acute Qualified Code(s): I50.31 - Acute diastolic (congestive) heart failure (3) Bilateral pneumonia Problem: Acute Qualifiers: Pneumonia type: due to unspecified organism Lung location: unspecified part of lung Qualified Code(s): J18.9 - Pneumonia, unspecified organism (4) Hypoxia Problem: Acute (5) Elevated troponin Problem: Acute (6) History of Coumadin therapy Problem: Chronic (7) CAD (coronary artery disease), [place] coronary artery Problem: Chronic Qualifiers: [place] vs. transplanted heart: [place] heart Associated angina: with unstable angina Qualified Code(s): I25.110 - Atherosclerotic heart disease of [place] coronary artery with unstable angina pectoris (8) Hyperlipidemia Problem: Chronic Qualifiers: Hyperlipidemia type: unspecified Qualified Code(s): E78.5 - Hyperlipidemia , unspecified (9) Hypertension Problem: Chronic Qualifiers: Hypertension type: renovascular hypertension Qualified Code(s): I15.0 - Renovascular hypertension (10) S/P AVR (aortic valve replacement) Problem: Chronic (11) Mitral stenosis Problem: Chronic Qualifiers: Cardiac valve disease etiology: etiology unspecified Qualified Code(s): I05.0 - Rheumatic mitral stenosis (12) Chronic kidney disease (CKD) stage G4/A1, severely decreased glomerular filtration rate (GFR) between 15-29 mL/min/1.73 square meter and albuminuria creatinine ratio less than 30 mg/g Problem: Chronic
[2017-09-25] MEDS: ROSUVASTATIN CALCIUM 20 MG TABLET PO SCH (22:19)
[2017-09-25] MEDS: DOCUSATE SODIUM 100 MG CAPSULE PO SCH (22:20)
[2017-09-25] MEDS: ASPIRIN 81 MG TAB.CHEW PO SCH (22:20)
[2017-09-25] MEDS: NIFEdipine 30 MG TAB.SR.24H PO SCH (22:59)
[2017-09-26 06:14] LABS: Prothrombin Time (Patient) 23.2 Seconds (9.0-11.0)
[2017-09-26 06:20] LABS: INR 2.3 INR (0.90-1.10)
[2017-09-26 06:30] VITALS: BP 119/44
[2017-09-26 09:15] LABS: Anion Gap 7.3 mmol/L (6.8-13.8); BUN/Creatinine Ratio 34.6 (9.0-21.6); Calcium * 8.1 mg/dL (7.9-10.9); Carbon Dioxide 30.5 mmol/L (24-32.6); Estimated Creat Clear 17.2; Potassium 3.8 mmol/L (3.4-4.6)
[2017-09-26] MEDS: POTASSIUM CHLORIDE 10 MEQ TABLET.SA PO SCH (09:38)
[2017-09-26] MEDS: HYDROCHLOROTHIAZIDE 25 MG TABLET PO SCH (09:38)
[2017-09-26] MEDS: LOSARTAN POTASSIUM 50 MG TABLET PO SCH (09:38)
[2017-09-26] MEDS: MAGNESIUM OXIDE 400 MG TABLET PO SCH (09:38)
[2017-09-26] MEDS: FUROSEMIDE 40 MG TABLET PO SCH (09:38)
--- NOTE | 2017-09-26 09:41 | DS ---
(1) Congestive cardiac failure Problem: Acute Qualifiers: Congestive heart failure type: diastolic Congestive heart failure chronicity: acute Qualified Code(s): I50.31 - Acute diastolic (congestive) heart failure (2) Bilateral pneumonia Problem: Acute Qualifiers: Pneumonia type: due to unspecified organism Lung location: unspecified part of lung Qualified Code(s): J18.9 - Pneumonia, unspecified organism (3) Hypoxia Problem: Acute (4) Elevated troponin Problem: Acute (5) History of Coumadin therapy Problem: Chronic (6) CAD (coronary artery disease), [place] coronary artery Problem: Chronic Qualifiers: [place] vs. transplanted heart: [place] heart Associated angina: with unstable angina Qualified Code(s): I25.110 - Atherosclerotic heart disease of [place] coronary artery with unstable angina pectoris (7) Hyperlipidemia Problem: Chronic Qualifiers: Hyperlipidemia type: unspecified Qualified Code(s): E78.5 - Hyperlipidemia , unspecified (8) Hypertension Problem: Chronic Qualifiers: Hypertension type: renovascular hypertension Qualified Code(s): I15.0 - Renovascular hypertension (9) S/P AVR (aortic valve replacement) Problem: Chronic (10) Mitral stenosis Problem: Chronic Qualifiers: Cardiac valve disease etiology: etiology unspecified Qualified Code(s): I05.0 - Rheumatic mitral stenosis (11) Chronic kidney disease (CKD) stage G4/A1, severely decreased glomerular filtration rate (GFR) between 15-29 mL/min/1.73 square meter and albuminuria creatinine ratio less than 30 mg/g Problem: Chronic Description of Stay: Angelica Mcintosh is an 87-year-old female admitted with hypoxemia and determined to be caused by congestive heart failure. She has some substernal chest burning and heaviness and the concern was that she may have had a small [place] given the bump in her troponin. However she has renal insufficiency and congestive heart failure which probably accounts for the mild rise in troponin. She was diuresed with 40 mg of Lasix on admission and then again the following morning. Yesterday she had dropped 3 kg of fluid and breathing much better today. She's been walking in the halls this morning without significant dyspnea although she has to stop and rest for a while at times. Her pneumonia that she had the week before appears to be resolving. 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 She also has developed a significant mitral stenosis. I had Dr. Barreto (cardiology) consult and it is his opinion that this will be a progressive deteriorating process with her heart but should be managed medically. At this point she is much improved and will need home oxygen and home health as she will need home oxygen for the rest of her life. She will follow with me in the office in 2 weeks. Procedures Performed: none Discharge Disposition: Home w/home health care Disposition: Home self-care Condition: Good Discharge Activity: Activity as tolerated Discharge Diet: Low salt Referrals: Vonda Chris DO [Primary Care Provider] - Problem Oriented Discharge Instructions to Patient/Family: Heart Failure, Easy- to-Read Additional Patient Instructions (free text): -Please make TCM appointment unless senior care discharge. Thank you! Yissel @ [phone]. The patient and family should be instructed on low sodium diet. She is to be weighed each morning on the same scales dressed the same. Home health will see her for vital signs checks and reporting her weight changes to me. She should wear her oxygen while doing physical therapy exercises. Prescriptions (Any new or edited meds): Furosemide [Lasix] 40 mg PO DAILY #90 tablet Losartan Potassium [Cozaar] 100 mg PO DAILY #90 tablet Magnesium Oxide [Mag-Ox 400] 400 mg PO DAILY #90 tablet NIFEdipine [Procardia Xl] 30 mg PO HS #90 tab.sr.24h Potassium Chloride [Klor-Con 10] 10 meq PO DAILY #90 tablet. Complete Home Medications List: Complete Home Medication List: Aspirin [Aspirin Chewable] 81 mg PO HS 08/11/12 Warfarin Sodium [Coumadin] 5 mg PO DAILY 08/11/12 Docusate Sodium [Colace] 200 mg PO HS 09/14/17 Acetaminophen [Tylenol] 650 mg PO Q6H PRN #0.1 tablet 09/16/17 Furosemide [Lasix] 40 mg PO DAILY #90 tablet 09/26/17 Losartan Potassium [Cozaar] 100 mg PO DAILY #90 tablet 09/26/17 Magnesium Oxide [Mag-Ox 400] 400 mg PO DAILY #90 tablet 09/26/17 NIFEdipine [Procardia Xl] 30 mg PO HS #90 tab.sr.24h 09/26/17 Potassium Chloride [Klor-Con 10] 10 meq PO DAILY #90 tablet.sa 09/26/17
== END 2017-09-26 15:37 | disposition home health service (06) | DRG 291 ==
LOC: ER 13:47 → MS 16:28
PROVIDERS: ADMIT Family Medicine; ATTEND Family Medicine
PROC: 4A033R1 Measurement of Arterial Saturation, Peripheral, Percutaneous Approach (ICD-10-PCS; principal; 2017-09-23)
PROC: B246ZZZ Ultrasonography of Right and Left Heart (ICD-10-PCS; 2017-09-24)
DX: I50.31 Acute diastolic (congestive) heart failure (principal); J18.9 Pneumonia, unspecified organism; I25.110 Atherosclerotic heart disease of native coronary artery with unstable angina pectoris; N18.4 Chronic kidney disease, stage 4 (severe); I05.0 Rheumatic mitral stenosis; R09.02 Hypoxemia; I12.9 Hypertensive chronic kidney disease with stage 1 through stage 4 chronic kidney disease, or unspecified chronic kidney disease; E78.5 Hyperlipidemia, unspecified; Z87.891 Personal history of nicotine dependence; Z95.1 Presence of aortocoronary bypass graft; Z95.2 Presence of prosthetic heart valve; Z79.01 Long term (current) use of anticoagulants; Z85.828 Personal history of other malignant neoplasm of skin

== ENCOUNTER 2017-09-28 21:21 | Observation (INO) | payer MEDICARE ==
[2017-09-28] MEDS ORDERED: ASPIRIN 81 MG TAB.CHEW PO ONE (21:37)
[2017-09-28 21:58] LABS: Hematocrit 28.9 % (37.0-47.0); Hemoglobin 9.5 gm/dL (12.5-16.0); Mean Cell Volume 85.5 fl (78-100); Mean Corpuscular Hemoglobin 28.1 pg (27-31); Mean Corpuscular Hgb Conc 32.9 g/dl (32-36); Mean Platelet Volume 9.6 fl (6.0-9.5); Neutrophil # 9.6 K/mm3 (1.3-6.0); Neutrophil % 71.4 % (42-75.0); Platelet Count 199 K/mm3 (150-450); Red Blood Count 3.38 M/mm3 (4.2-5.4); Red Cell Distribution Width 16.7 % (11.5-14.0); White Blood Count 13.5 K/mm3 (4.0-10.5)
[2017-09-28 22:01] LABS: Prothrombin Time (Patient) 16.1 Seconds (9.0-11.0)
[2017-09-28] MEDS ORDERED: ASPIRIN 81 MG TAB.CHEW ONE (22:03)
[2017-09-28 22:06] LABS: INR 1.6 INR (0.90-1.10); Partial Thrombolplastin Time 26.8 Seconds (24-32)
[2017-09-28 22:10] LABS: Albumin * 3.3 gm/dl (3.4-5.0); Anion Gap 7.4 mmol/L (6.8-13.8); BUN/Creatinine Ratio 30.2 (9.0-21.6); Bilirubin, Total 1.2 mg/dL (0.0-1.1); Ca. Corrected For Albumin 8.9 mg/dL (8.4-10.2); Calcium * 8.7 mg/dL (7.9-10.9); Carbon Dioxide 31.1 mmol/L (24-32.6); Potassium 4.5 mmol/L (3.4-4.6); Total Protein 6.8 gm/dL (6.2-8.2)
[2017-09-28 22:11] LABS: Troponin I 0.437 ng/ml (0.00-0.10)
--- NOTE | 2017-09-28 22:13 | ERNOTE ---
Chest Pain/Cardiac HPI Chief Complaint: Chest Pain Time Seen by Provider: 09/28/17 21:25 Source: patient Exam Limitations: no limitations Immunizations: IMMUNIZATION HX Immunizations Up to Date Yes History of Influenza Vaccine Yes Hx Pneumococcal Vaccination Yes Allergies/Adverse Reactions: Allergies levofloxacin [From Levaquin] Allergy (Intermediate, Verified 09/23/17 17:20) Hives Penicillins Allergy (Intermediate, Verified 09/23/17 17:20) Hives metoprolol Allergy (Mild, Verified 09/23/17 17:20) Hives procaine HCl [From Novocain] Adverse Reaction (Severe, Verified 09/23/17 17:20) Swelling of Face Sulfa (Sulfonamide Antibiotics) [Sulfa(Sulfonamide Antibiotics)] Adverse Reaction (Intermediate, Verified 09/23/17 17:20) Other nightmares Home Medications: HOME MEDICATIONS Aspirin [Aspirin Chewable] 81 mg PO HS 08/11/12 [Last Taken 08/10/12 17:00] Warfarin Sodium [Coumadin] 5 mg PO DAILY 08/11/12 [Last Taken 08/10/12 17:00] Docusate Sodium [Colace] 200 mg PO HS 09/14/17 [Last Taken Unknown] Acetaminophen [Tylenol] 650 mg PO Q6H PRN #0.1 tablet 09/16/17 [Last Taken Unknown] Furosemide [Lasix] 40 mg PO DAILY #90 tablet 09/26/17 [Last Taken Unknown] Losartan Potassium [Cozaar] 100 mg PO DAILY #90 tablet 09/26/17 [Last Taken Unknown] Magnesium Oxide [Mag-Ox 400] 400 mg PO DAILY #90 tablet 09/26/17 [Last Taken Unknown] NIFEdipine [Procardia Xl] 30 mg PO HS #90 tab.sr.24h 09/26/17 [Last Taken Unknown] Potassium Chloride [Klor-Con 10] 10 meq PO DAILY #90 tablet.sa 09/26/17 [Last Taken Unknown] Narrative: Patient was admitted 09/14/17 for CHF and pneumonia, then readmitted on 09/24 for CHF and elevated troponin. 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 Notes from Dr Brian during the last admission state that the case was discussed with her bat carrier ( Dr Young) and the recommendation was to treat the patient medically with the expectation that she would get worse. She was discharged home on 09/26 after diuresis with 3liter home O2. She states that she has occasional chest pressure but when she laid down at 21: 00 she started to have moderate burning in her mid chest as well as increased shortness of breath that caused her to call the ambulance and come to the ER. Her family states that when the home health nurse weighed her this morning she had gained 1.5 lbs Review of Systems - Review of Systems Constitutional: Present: recent illness, malaise. Absent: fever, chills EYE: Absent: vision changes ENT: Absent: nose congestion, sore throat Respiratory: Present: See HPI, shortness of breath. Absent: cough Cardiology: Present: See HPI, chest pain Gastrointestinal/Abdominal: Present: nausea. Absent: vomiting, abdominal pain Genitourinary: Present: no symptoms reported Musculoskeletal: Absent: back pain Neurological: Absent: headache - Patient's Past Medical History Patient History - Medical: No pertinent hx Patient History - Cardiac/Respiratory: Cardiomyopathy, Coronary Heart Disease, CHF, Hypertension, Hyperlipidemia, Pneumonia, Valvular Heart Disease Patient History - Cancer: No Hx of Cancer Patient History - Surgical Procedures: No surgical history Patient History - Other: None - Family History Father Family History - Medical: Family History - Cardiac/Respiratory: CHF Family History - Cancer: No pertinent family hx Mother Family History - Medical: Family History - Cardiac/Respiratory: Myocardial Infarction Family History - Cancer: No pertinent family hx - Social History Living Situations: home Abuse History: No History of abuse Psych History: No pertinent hx Smoking Status: Never smoker Have you smoked in the past 12 months: No Do you dip or chew tobacco: No Alcohol Use: none Drug Use: none - Immunizations Immunizations Up to Date: Yes Hx Pneumococcal Vaccination: Yes History of Influenza Vaccine: Yes Physical Exam - Physical Exam General Appearance: Present: wd/wn, alert, no apparent distress Head Exam: Present: normal inspection Eye Exam: Normal inspection: bilateral Ears, Nose, Throat: Present: normal ENT inspection, normal pharynx Respiratory: Present: no respiratory distress, decreased breath sounds, rales - both bases Cardiovascular/Chest: Present: regular rate, rhythm, no murmur Gastrointestinal/Abdominal: Present: nontender, nondistended Extremity Exam: Present: no edema Neurological Exam: Present: alert, oriented, normal mood/affect Skin Exam: Present: normal color, warm/dry ED Progress - Results and Orders Patient's Lab Results:: I have reviewed the patient's lab results. - Vital Signs Patient's Vital Signs:: I have reviewed the patient's vital signs. Vital Signs: Vital Signs 09/28/17 09/28/17 09/28/17 21:25 22:04 22:07 Temperature 37.4 C Pulse Rate 98 96 96 Respiratory 22 H 21 H Rate Blood Pressure 92/39 75/39 O2 Sat by Pulse 86 L 91 Oximetry - EKG EKG: NSR - sinustachy, unchanged from - 09/25/17, other - intraventricular conduction delay - X-Ray X-Ray #1 X-Ray: chest - bilateral pleural effusion, worsening venous congestion Interpretation: Interp. by ks - Progress/Reassessment Chief Complaint: Chest Pain Progress Note-Subjective: 09/28/17 22:48 extended discussion with three daughters and son about worsening heart failure and increasing O2 requirements. Due to low BP will have to be very careful with diuresis. Son was asking about possible transfer to [facility] (Dr Pierce), I explained that it would be possible if family request but unsure from prior conversation that they have other treatment options for her not available here, Family would also have to sign [facility] closer. Family agreed to admission here, mentioned hospice as possibility to discuss with attending, pneumonia cannot be ruled out on CXR and WBC increased, will treat the antibiotics 09/28/17 23:00 discussed with rochelle Mccullough to admit for CHF protocol and treat for pneumonia as well, related conversation with family as well, Departure Clinical Impression: Chronic kidney disease (CKD) stage G4/A1, severely decreased glomerular filtration rate (GFR) between 15-29 mL/min/1.73 square meter and albuminuria creatinine ratio less than 30 mg/g, S/P AVR (aortic valve replacement), Elevated troponin, Hypoxia Mitral stenosis Qualifiers: Cardiac valve disease etiology: etiology unspecified Qualified Code(s): I05.0 - Rheumatic mitral stenosis Congestive cardiac failure Qualifiers: Congestive heart failure type: unspecified Congestive heart failure chronicity : acute on chronic Qualified Code(s): I50.9 - Heart failure, unspecified - Departure Disposition: [facility] Condition: Fair
[2017-09-28] MEDS ORDERED: FUROSEMIDE 10 MG/ML VIAL IV ONE (22:50)
[2017-09-28] MEDS ORDERED: NORMAL SALINE 250 ML IV ONE (22:50)
[2017-09-28] MEDS ORDERED: FUROSEMIDE 10 MG/ML VIAL ONE (22:52)
[2017-09-28] MEDS ORDERED: ACETAMINOPHEN 325 MG TABLET PO PRN (23:18)
[2017-09-28] MEDS ORDERED: AZITHROMYCIN 250 MG TABLET PO STA (23:18)
[2017-09-28] MEDS ORDERED: AZITHROMYCIN 250 MG TABLET ONE (23:35)
[2017-09-29] MEDS ORDERED: MORPHINE SULFATE 2 MG/ML DISP.SYRIN IV PRN ×2 (01:21→01:49)
[2017-09-29] MEDS ORDERED: LORazepam 2 MG/ML DISP.SYRIN IV PRN (01:49)
[2017-09-29] MEDS ORDERED: ATROPINE SULFATE 150 DROP BTL SL PRN (01:49)
--- NOTE | 2017-09-29 02:14 | HP ---
Chief Complaint - Chief Complaint Date of Service: 09/29/17 Time of Service: 02:10 Chief Complaint: chest pain, shortness of breath History of Present Illness: 87 years old female adm to the hospital with reports of worsening hypoxemia, CHF exacerbation substernal chest pain and pneumonia. pt was recently discharged home with oxygen Sep 24. 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 per family while pt was at home she got hypoxic 81% on 3L nasal cannula, she was reporting shortness of breath and felt very congested. Family called EMS and brought her to the hospital. while in ER troponin continue to show marked increased possible due to CKD, CHF and in presence of a complicated heart. She was hypotensive and had 250ml bolus and lasix 20mg x1. Family stated they know her condition getting progressively worst very fast and want pt to remain DNR. family will consider hospice in the morning, but for tonight they want comfort care. Plan of care discussed with family they verbalized understanding and agrees. - Patient's Past Medical History Patient History - Medical: No pertinent hx Patient History - Cardiac/Respiratory: Cardiomyopathy, Coronary Heart Disease, CHF, Hypertension, Hyperlipidemia, Pneumonia, Valvular Heart Disease Patient History - Cancer: No Hx of Cancer Patient History - Surgical Procedures: No surgical history Patient History - Other: None - Family History Father Family History - Medical: Family History - Cardiac/Respiratory: CHF Family History - Cancer: No pertinent family hx Mother Family History - Medical: Family History - Cardiac/Respiratory: Myocardial Infarction Family History - Cancer: No pertinent family hx - Social History Living Situations: home Abuse History: No History of abuse Psych History: No pertinent hx Smoking Status: Never smoker Have you smoked in the past 12 months: No Do you dip or chew tobacco: No Alcohol Use: none Drug Use: none - Immunizations Immunizations Up to Date: Yes Hx Pneumococcal Vaccination: Yes History of Influenza Vaccine: Yes Review Of Systems (GEN) - Review of Systems Generalized/Overall Review: Present: Weakness, Fatigue, Weight gain EENTM: Present: Nose Congestion, Throat Pain Respiratory: Present: Shortness of Breath, Orthopnea, Wheezing Cardiac: Present: Chest Pain Abdominal: Present: No Symptoms Reported Genitourinary: Present: Frequency Musculoskeletal: Present: No Symptoms Reported Neurological: Present: Weakness Skin: Present: No Symptoms Reported Endocrine: Present: No Symptoms Reported Immunizations: IMMUNIZATION HX Immunizations Up to Date Yes History of Influenza Vaccine Yes Hx Pneumococcal Vaccination Yes Allergies/Adverse Reactions: Allergies Allergy/AdvReac Type Severity Reaction Status Date / Time levofloxacin [From Levaquin] Allergy Intermediate Hives Verified 09/23/17 17:20 Penicillins Allergy Intermediate Hives Verified 09/23/17 17:20 metoprolol Allergy Mild Hives Verified 09/23/17 17:20 procaine HCl [From Novocain] AdvReac Severe Swelling Verified 09/23/17 17:20 of Face Sulfa (Sulfonamide AdvReac Intermediate Other Verified 09/23/17 17:20 Antibiotics) [Sulfa(Sulfonamide Antibiotics)] Home Medications: HOME MEDICATIONS Aspirin [Aspirin Chewable] 81 mg PO HS 08/11/12 [Last Taken 08/10/12 17:00] Warfarin Sodium [Coumadin] 5 mg PO DAILY 08/11/12 [Last Taken 08/10/12 17:00] Docusate Sodium [Colace] 200 mg PO HS 09/14/17 [Last Taken Unknown] Acetaminophen [Tylenol] 650 mg PO Q6H PRN #0.1 tablet 09/16/17 [Last Taken Unknown] Furosemide [Lasix] 40 mg PO DAILY #90 tablet 09/26/17 [Last Taken Unknown] Losartan Potassium [Cozaar] 100 mg PO DAILY #90 tablet 09/26/17 [Last Taken Unknown] Magnesium Oxide [Mag-Ox 400] 400 mg PO DAILY #90 tablet 09/26/17 [Last Taken Unknown] NIFEdipine [Procardia Xl] 30 mg PO HS #90 tab.sr.24h 09/26/17 [Last Taken Unknown] Potassium Chloride [Klor-Con 10] 10 meq PO DAILY #90 tablet.sa 09/26/17 [Last Taken Unknown] Exam - Exam Vital Signs: Vital Signs - Last Taken Temp 36.4 C L 09/28/17 23:22 Pulse 98 09/28/17 23:22 Resp 20 09/28/17 23:22 BP 107/50 09/28/17 23:22 Pulse Ox 89 L 09/28/17 23:22 Constitutional: Present: Alert, Cooperative, Acute distress, Lethargic ENT Exam: Present: hard of hearing Eye Exam: bilateral eye: normal inspection Neck: Present: non-tender, full range of motion, normal inspection Back Exam: Present: no CVA tenderness Breasts: Present: Exam deferred Respiratory: Present: chest non-tender, respiratory distress, decreased breath sounds, accessory muscle use, crackles, rhonchi Cardiovascular/Chest: Present: normal peripheral pulses, no chest tenderness, no gallop, systolic murmur Peripheral Pulses: dorsalis-pedis (R): 2+, dorsalis-pedis (L): 2+ Abdomen: Present: Normal bowel sounds, soft, nontender, nondistended, no rebound tenderness /Rectal: Present: Exam deferred Extremity: Present: normal range of motion, non-tender, normal inspection, no pedal edema, slow capillary refill Skin Exam: Present: normal color, warm/dry Lymphatic: Present: no adenopathy Neurologic: Present: alert, motor weakness, sensory deficit, dizzy/light- headedness Appearance: Present: disheveled, impaired insight, impaired remote memory Eye contact: Present: good eye contact Thoughts: Present: flight of ideas, incoherent Diagnostic Studies: Laboratory Results WBC 13.5 K/mm3 (4.0-10.5) H 09/28/17 21:45 RBC 3.38 M/mm3 (4.2-5.4) L 09/28/17 21:45 Hgb 9.5 gm/dL (12.5-16.0) L 09/28/17 21:45 Hct 28.9 % (37.0-47.0) L 09/28/17 21:45 MCV 85.5 fl (78-100) 09/28/17 21:45 MCH 28.1 pg (27-31) 09/28/17 21:45 MCHC 32.9 g/dl (32-36) 09/28/17 21:45 RDW 16.7 % (11.5-14.0) H 09/28/17 21:45 Plt Count 199 K/mm3 (150-450) 09/28/17 21:45 MPV 9.6 fl (6.0-9.5) H 09/28/17 21:45 Immature Gran % (Auto) 0.50 % (0.001-0.429) H 09/28/17 21:45 Immature Gran # (Auto) 0.07 K/mm3 (0.000-0.0310) H 09/28/17 21:45 Neutrophils % 71.4 % (42-75.0) 09/28/17 21:45 Lymphocytes % 15.6 % (20-51) L 09/28/17 21:45 Monocytes % 7.3 % (0.0-9) 09/28/17 21:45 Eosinophils % 4.7 % (0.0-3.0) H 09/28/17 21:45 Basophils % 0.5 % (0.0-1.0) 09/28/17 21:45 Nucleated RBC % 0.0 k/mm3 (0-1) 09/28/17 21:45 Neutrophils # 9.6 K/mm3 (1.3-6.0) H 09/28/17 21:45 Lymphocytes # 2.1 k/mm3 (1.5-3.5) 09/28/17 21:45 Monocytes # 1.0 k/mm3 (0.0-1.0) 09/28/17 21:45 Eosinophils # 0.6 k/mm3 (0.0-0.7) 09/28/17 21:45 Absolute Basophils 0.1 k/mm3 (0.0-0.1) 09/28/17 21:45 PT 16.1 Seconds (9.0-11.0) H 09/28/17 21:45 INR (Anticoag Therapy) 1.60 INR (0.90-1.10) H 09/28/17 21:45 PTT (Dannielle) 26.8 Seconds (24-32) 09/28/17 21:45 pCO2 38.0 mmHg (32.0-45.0) 09/28/17 22:13 pO2 56.2 mmHg (83.0-108.0) L 09/28/17 22:13 HCO3 21.8 mmol/L (21.0-28.0) 09/28/17 22:13 Total CO2 23.0 mmol/L (19.0-24.0) 09/28/17 22:13 Base Excess -2.9 mmol/L (-2.0-3.0) L 09/28/17 22:13 ABG pH 7.38 (7.35-7.45) 09/28/17 22:13 ABG O2 Sat (Measured) 88.8 % (94.0-98.0) L 09/28/17 22:13 Sodium 130 mmol/L (132-142) L 09/28/17 21:45 Plasma Sodium 131 mmol/L (130-142) 09/28/17 21:45 Potassium 4.5 mmol/L (3.4-4.6) 09/28/17 21:45 Chloride 96 mmol/L (97-106) L 09/28/17 21:45 Carbon Dioxide 31.1 mmol/L (24-32.6) 09/28/17 21:45 Anion Gap 7.4 mmol/L (6.8-13.8) 09/28/17 21:45 BUN 68 mg/dL (3-23) H 09/28/17 21:45 Creatinine 2.25 mg/dL (0.4-1.4) H D 09/28/17 21:45 Est GFR (Non-Af Amer) 22 mL/min (60-130) L D 09/28/17 21:45 BUN/Creatinine Ratio 30.2 (9.0-21.6) H 09/28/17 21:45 Random Glucose 167 mg/dL (70-110) H D 09/28/17 21:45 Calcium 8.7 mg/dL (7.9-10.9) 09/28/17 21:45 Calcium Adj for Albumin 8.9 mg/dL (8.4-10.2) 09/28/17 21:45 Total Bilirubin 1.2 mg/dL (0.0-1.1) H 09/28/17 21:45 AST 16 U/L (0-48) 09/28/17 21:45 ALT 20 U/L (19-67) 09/28/17 21:45 Alkaline Phosphatase 59 U/L (50-170) 09/28/17 21:45 Troponin I 0.437 ng/ml (0.00-0.10) H* 09/28/17 21:45 B-Natriuretic Peptide 4123 pg/mL (5-550) H 09/28/17 21:45 Total Protein 6.8 gm/dL (6.2-8.2) 09/28/17 21:45 Albumin 3.3 gm/dl (3.4-5.0) L 09/28/17 21:45 CXR: worsening CHF Assessment/Plan - Assessment/Plan (1) Congestive cardiac failure Problem: Chronic Qualifiers: Congestive heart failure type: unspecified Congestive heart failure chronicity: acute on chronic Qualified Code(s): I50.9 - Heart failure, unspecified (2) Elevated troponin Problem: Acute (3) Hypoxia Problem: Acute (4) Chronic kidney disease (CKD) stage G4/A1, severely decreased glomerular filtration rate (GFR) between 15-29 mL/min/1.73 square meter and albuminuria creatinine ratio less than 30 mg/g Problem: Chronic (5) Mitral stenosis Problem: Chronic Qualifiers: Cardiac valve disease etiology: etiology unspecified Qualified Code(s): I05.0 - Rheumatic mitral stenosis (6) S/P AVR (aortic valve replacement) Problem: Chronic (7) CAD (coronary artery disease), [place] coronary artery Problem: Chronic Qualifiers: (8) Hyperlipidemia Problem: Chronic Qualifiers: (9) Hypertension Problem: Chronic Qualifiers:
[2017-09-29 02:25] VITALS: BP 110/47
--- NOTE | 2017-09-29 05:19 | DS ---
Discharge Summary - Provider Primary Care Provider: Keith Brian Admitting Clinician: Sadia Dallas Attending Physician on Admission: Keith Brian Pronouncing Clinician: Sadia Dallas - Date and Time Date of : 09/29/17 Time of : 02:40 - Diagnosis/Cause of (1) Congestive cardiac failure Problems: Chronic (2) Elevated troponin Problems: Acute (3) Hypoxia Problems: Acute (4) Chronic kidney disease (CKD) stage G4/A1, severely decreased glomerular filtration rate (GFR) between 15-29 mL/min/1.73 square meter and albuminuria creatinine ratio less than 30 mg/g Problems: Chronic (5) Mitral stenosis Problems: Chronic (6) S/P AVR (aortic valve replacement) Problems: Chronic (7) CAD (coronary artery disease), [place] coronary artery Problems: Chronic (8) Hyperlipidemia Problems: Chronic (9) Hypertension Problems: Chronic - Summary Details (narrative): 87 years old female adm to the hospital with reports of worsening hypoxemia, CHF exacerbation substernal chest pain and pneumonia. pt was recently discharged home with oxygen Sep 24. 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 per family while pt was at home she got hypoxic 81% on 3L nasal cannula, she was reporting shortness of breath and felt very congested. Family called EMS and brought her to the hospital. while in ER troponin continue to show marked increased possible due to CKD, CHF and in presence of a complicated heart. She was hypotensive and had 250ml bolus and lasix 20mg x1. Family stated they know her condition getting progressively worst very fast and want pt to remain DNR. family will consider hospice in the morning, but for tonight they want comfort care. During this adm pt was observed to be in marked respiratory failure secondary to her multiple complicated comorbidity. Family want only comfort care at the time and re quested for the freight rate specialist. Plan of care discussed with family they verbalized understanding and agrees. Procedures Performed: none - Additional Data Confirmation of as documented by pronouncing clinician: no pulse, no respirations, no heart sounds, pupils fixed and dilated Family: at bedside Additional persons at bedside: other - nurse Attending/PCP notified: Yes Was code activated: No Autopsy requested: No Rn Palliative Care notified: Yes [employer] notified: Yes Advance Directives: Yes Hospice patient: No
[2017-09-29] MEDS ORDERED: AZITHROMYCIN 250 MG TABLET PO SCH (23:20)
== END 2017-09-29 02:40 | disposition expired ==
LOC: ER 21:21 → MS 23:16
PROVIDERS: ADMIT Nurse Practitioner; ATTEND Family Medicine
DX: I50.9 Heart failure, unspecified (principal); R77.8 Other specified abnormalities of plasma proteins; R09.02 Hypoxemia; N18.4 Chronic kidney disease, stage 4 (severe); I05.0 Rheumatic mitral stenosis; Z95.828 Presence of other vascular implants and grafts; I25.10 Atherosclerotic heart disease of native coronary artery without angina pectoris; E78.5 Hyperlipidemia, unspecified; I10 Essential (primary) hypertension; Z68.33 Body mass index [BMI] 33.0-33.9, adult
CPT/HCPCS: 36415; 36600; 71045; 80053; 82803; 83880; 84484; 85025; 85610; 85730; 87040; 93005; 96365; 96367; 99284; G0378